=== PATIENT | female | born 1940 | race Caucasian/White ===

== ENCOUNTER 2016-07-09 10:21 | Emergency (ER) | payer MEDICARE, OTHER ==
[~2016-07-09] VITALS: Ht 167.6 cm; Wt 72.6 kg
[~2016-07-09 10:21] MED LIST: IBAN150T4 PO; METH2.5T PO; METO25TA3 PO
[2016-07-09 10:39] VITALS: BP_SYST 152
[2016-07-09] MEDS ORDERED: BACITRACIN 1 GM OINT TP ONE (12:00)
[2016-07-09] MEDS ORDERED: IBUPROFEN 600 MG TABLET PO ONE (12:15)
[2016-07-09 12:20] VITALS: BP_SYST 156
== END 2016-07-09 12:20 | disposition home or self-care (01) ==
LOC: SED 10:21
DX: S60.221A Contusion of right hand, initial encounter (principal); S20.212A Contusion of left front wall of thorax, initial encounter; S80.212A Abrasion, left knee, initial encounter; J45.909 Unspecified asthma, uncomplicated; I10 Essential (primary) hypertension; E78.5 Hyperlipidemia, unspecified; C44.91 Basal cell carcinoma of skin, unspecified; Z88.5 Allergy status to narcotic agent; Z88.2 Allergy status to sulfonamides; V09.9XXA Pedestrian injured in unspecified transport accident, initial encounter; Y93.01 Activity, walking, marching and hiking; Y99.8 Other external cause status; Y92.89 Other specified places as the place of occurrence of the external cause
CPT/HCPCS: 71010; 71100; 73564; 99284